=== PATIENT | male | born 1945 | race Caucasian/White ===

== ENCOUNTER 2021-12-11 17:38 | Emergency (ER) | payer MEDICARE, BC, SELFPAY ==
[2021-12-11 17:51] VITALS: BP 203/111; PULSE 87; RESP 18; TEMP 36.8; O2SAT 96; BMI 28.3
[2021-12-11 18:30] VITALS: BP 193/116
--- OUTSIDE RECORDS SUMMARY | 2021-12-11 18:34 | XMS_ITS | Clinical Summary ---
:1945 Author Organization [employer] [facility] [place] [address] Care Team Providers Name Role Phone Alonzo Gore MD Primary Care Provider Allergies Not on File Medications Medication Sig Dispensed Refills Start Date End Date Status aspirin chewable 81 mg Take 81 mg by 0 Active chewable tablet mouth once daily with a meal. clopidogreL (PLAVIX) 75 Take 75 mg by 0 Active mg tablet mouth once daily. rosuvastatin (CRESTOR) Take 20 mg by 0 Active 20 mg tablet mouth at bedtime. Active Problems Not on file Immunizations Name Administration Dates Next Due Amb Influenza, Inactivated AIIV4 (Age 65+ Years) 01/18/2020 Preserv Free Social History Tobacco Use Types Packs/Day Years Used Date Never Assessed Sex Assigned at Date Recorded Not on file Last Filed Vital Signs Vital Sign Reading Time Taken Comments Blood Pressure - - Pulse - - Temperature - - Respiratory Rate - - Oxygen Saturation - - Inhaled Oxygen Concentration - - Weight 91.5 kg (201 lb 11.2 oz) 08/25/2019 11:00 AM CDT Height 172.7 cm (5' 8) 08/25/2019 11:00 AM CDT Body Mass Index 30.67 08/25/2019 11:00 AM CDT Plan of Treatment Health Maintenance Due Date Last Done Comments COVID-19 vaccine series (#1) 1945 Tdap 1956 BMI (ht and wt on same day) for age 18+ 1965 Hepatitis C screening for age 18-79 1965 Tetanus booster 1967 Colonoscopy through age 75 1992 Lipids for age 45-75 1992 Zoster (shingles) series for age 50+ (1 of 1997 2) Pneumococcal series for age 65+ (1 - PCV) 2012 Depression screening for age 12+ 12/08/2020 12/09/2019, Influenza for age 65+ 12/07/2021 01/18/2020 Results Not on filefrom Last 3 Months Insurance Payer Benefit Plan / Subscriber ID Effective Dates Phone Addre ss Type Group MEDICARE PART B MEDICARE PART B [id number] 2012-Presen ATTN: CLAIMS - HB USE ONLY HB ONLY t [address] [place] [address] MEDICARE PART A MEDICARE RR [id number] 2012-Presen [address] - HB USE [place] [address] [place] BLUE [employer]OSS [id number] 2016-Presen [address] [address] [place], [place] [id number] [employer]OSS BL[employer]OSS [id number] 2016-Presen [address] [address] [place], [place] ONLY [id number] (Home) [place] [address] Care Teams Area Secretary Relationship Specialty Start Date End Date Alonzo Gore MD PCP - General Internal Medicine 10/06/161999 [place] [address]
[2021-12-11 19:00] VITALS: PULSE 84; O2SAT 94
--- NOTE | 2021-12-11 21:56 | ED.WOUNDLAC ---
HPI - Wound/Laceration General Chief Complaint: Laceration/Wound Stated Complaint: Vlad fell on Him Time Seen by Provider: 12/11/21 18:03 History of Present Illness HPI narrative: 76-year-old man presenting to the emergency department after tripping over an up turned wheelbarrow and somehow lacerating the left side of his face. His also struck his head. There was no loss of consciousness. He was assisting a neighbor with a trailer when he removed a Jaime and it began to slip and Mr. Santoro ran away tripping over the wheelbarrow. Dentition feels intact. Does not have any neck or back pain. No injury noted to chest. No nausea. No abdominal pain. his shirt has torn in the front. He does note a bump on the back of his head. He does not take anticoagulants. Related Data Home Medications Medication Instructions Recorded Confirmed aspirin 81 mg capsule 81 mg PO DAILY 12/11/21 12/11/21 losartan 25 mg tablet mg 12/11/21 rosuvastatin 20 mg tablet mg 12/11/21 Allergies Allergy/AdvReac Type Severity Reaction Status Date / Time lisinopril Allergy Intermediate Cough Verified 11/20/21 15:40 Review of Systems Status of ROS: Reports: 6 or more systems reviewed and unremarkable except as noted in History and below [facility] Medical History Hemorrhage of colon following colonoscopy (10/08/17) ST elevation myocardial infarction (STEMI) (08/04/19) Surgical History History of coronary artery stent placement (08/04/19) Social History Smoking Status: Former smoker Do you use any of these nicotine containing products: None Second hand tobacco smoke exposure: No How often do you have a drink containing alcohol: 4 or more times a week How many standard drinks containing alcohol do you have on a typical day: 1 or 2 How often do you have six or more drinks on one occasion: Never AUDIT-C Alcohol total score: 4 Non-prescribed substance use: denies use Exam Narrative: Exam Narrative: Is of good energy. Bespectacled. Moving all extremities without difficulty. No injury apparent on extremities other than anterior left mckeon with number of scrapes where bleeding has been controlled. Cranial nerves 2-12 intact. GCS 15. There is dried blood about his left face, shirt which is ripped with a vertically in the left front. There is a small lump without crepitus palpable at the right mid-occipital area. A scrape below that is not actively bleeding. In the smile line on the left there is a scrape starting just inferior to the left naris extending and deepening to about a cm above the vermilion border. Gapping slightly with the deepest portion about an inch in length. Or pharyngeal exam is unremarkable dentition intact. Is not a through and through laceration. Cardiovascular with regular rate and rhythm Back is nontender. Lungs equal expansion excursion appear to be clear. Abdomen is soft and nontender. Const: Vital Signs, click to edit/add: Vital Signs - 24 hr 12/11/21 17:51 12/11/21 19:00 12/11/21 18:30 Temperature 98.3 F Pulse Rate [Bilate ral Pulse Oximeter ] 87 84 Respiratory Rate 18 Blood Pressure [Ri ght Upper Arm] 203/111 H 193/116 H Pulse Oximetry 96 94 Oxygen Delivery Me thod Room Air Room Air Documenting provider has reviewed patient's vital signs: yes Course Course Hospital Course: Did not feel he needed any intervention for pain. He even was about to defer anesthetic. Cleansed with Hibiclens solution by nursing. Did bring the somewhat superficial aspect of this wound together on the superior part to decrease the likely scarring. Following injection with lidocaine with epinephrine, suturing this and remainder of laceration with 5 - Ethilon interrupted sutures. Excellent approximation and control bleeding was achieved. Five - 6 sutures placed. Vital Signs Vital signs: Initial Vital Signs Temperature 98.3 F 12/11/21 17:51 Temperature Source Temporal Artery Scan 12/11/21 17:51 Pulse Rate 87 12/11/21 17:51 Respiratory Rate 18 12/11/21 17:51 Blood Pressure 203/111 H 12/11/21 17:51 Blood Pressure Mean 141 12/11/21 17:51 Blood Pressure Position Sitting 12/11/21 17:51 Pulse Oximetry 96 12/11/21 17:51 Oxygen Delivery Method 12/11/21 17:51 Vital Signs Temperature 98.3 F 12/11/21 17:51 Pulse Rate 87 12/11/21 17:51 Respiratory Rate 18 12/11/21 17:51 Blood Pressure 203/111 H 12/11/21 17:51 Pulse Oximetry 96 12/11/21 17:51 Oxygen Delivery Method 12/11/21 17:51 Temperature 98.3 F 12/11/21 17:51 Pulse Rate 84 12/11/21 19:00 Respiratory Rate 18 12/11/21 17:51 Blood Pressure 193/116 H 12/11/21 18:30 Pulse Oximetry 94 12/11/21 19:00 Oxygen Delivery Method 12/11/21 19:00 MDM - Wound/Laceration MDM Narrative Medical decision making narrative: Blood pressure is rather elevated. Mr. Santoro does not appear to be concerned. Did follow up to confirm in phone call that he monitor this closely. He believes that this will settle down. Closed head injury appears to be more superficial. In shared decision making we decided not to proceed with head imaging. Medical Records Attestation: I reviewed the patient's medical records. Discharge Plan Discharge Clinical Impression: Closed head injury, Facial laceration, Abrasion, Elevated blood pressure reading with diagnosis of hypertension Patient Disposition: Home, Self-Care Condition: Improved Additional Instructions: I would ice that bump on your head a couple of times daily over the next few days. Return for severe headache, repeated vomiting, unusual somnolence. sutures out in 6 days. antibiotic ointment for 3-4 days and then to a dry dressing. ok to get wet but try not to soak while sutures are in. for further scar reduction/wound healing if desired -- after the scab falls off, can apply daily vitamin e oil, emu oil or something like maderma or silicone-containing ointments or bandaids daily. especially avoid sun exposure for the first 9 - 12 months. Watch for spreading redness after 2 days accompanied by heat, swelling, marked increase in pain, purulent drainage. Please follow up this blood pressure this next week. Prescriptions: No Action losartan 25 mg tablet Label Comments: TAKE 1 TABLET BY MOUTH DAILY rosuvastatin 20 mg tablet Label Comments: TAKE 1 TABLET BY MOUTH DAILY aspirin 81 mg capsule 81 mg PO DAILY Follow Up/Referrals: Alonzo Gore MD [Primary Care Provider] - Stand Alone [facility] Inst[facility]
== END 2021-12-11 19:02 | disposition home or self-care (01) ==
PROVIDERS: Emergency Provider Family Medicine; PCP Internal Medicine
DX: S01.81XA Laceration without foreign body of other part of head, initial encounter (principal); S09.8XXA Other specified injuries of head, initial encounter; W01.0XXA Fall on same level from slipping, tripping and stumbling without subsequent striking against object, initial encounter; Y93.89 Activity, other specified; Y92.9 Unspecified place or not applicable; I10 Essential (primary) hypertension
CPT/HCPCS: 12011; 99284

== ENCOUNTER 2023-01-14 07:50 | Outpatient (CLI) | payer MEDICARE, BC, SELFPAY | END 2023-01-14 07:51 | disposition home or self-care (01) | LOC: NFLDREF 01-15 22:55 | PROVIDERS: PCP Internal Medicine; Referring Provider Internal Medicine; Visit Provider Internal Medicine | DX: Z00.00 Encounter for general adult medical examination without abnormal findings (principal); D64.9 Anemia, unspecified; I10 Essential (primary) hypertension; I25.10 Atherosclerotic heart disease of native coronary artery without angina pectoris; Z13.6 Encounter for screening for cardiovascular disorders; Z12.5 Encounter for screening for malignant neoplasm of prostate | CPT/HCPCS: 80053; 80061; 84153 ==

== ENCOUNTER 2024-02-13 06:30 | Day surgery (SDC) | payer MEDICARE, BC, SELFPAY ==
[2024-02-13] VITALS (18 sets, daily range): BP systolic 105–175; BP diastolic 53–102; PULSE 47–79; RESP 10–20; TEMP 35.9–36.6; O2SAT 93–98; BMI 28.8
--- OUTSIDE RECORDS SUMMARY | 2024-02-13 06:33 | XMS_ITS | Clinical Summary ---
Author Organization [employer] [facility] Address [place], [place] [address] Care Team Providers Care Inside Sales Consultant Name Role Phone Alonzo Gore MD Primary Care Provider [phone] Medications Medication Sig Dispensed Refills Start Date End Date Status aspirin chewable 81 mg chewable tablet Take 81 mg by mouth once daily with a meal. Active clopidogreL (PLAVIX) 75 mg tablet Take 75 mg by mouth once daily. Active rosuvastatin (CRESTOR) 20 mg tablet Take 20 mg by mouth at bedtime. Active Immunizations Name Administration Dates Next Due Amb Influenza, Inactivated A IIV4 (Age 65+ Years) Preserv Free 01/18/2020 Social History Tobacco Use Types Packs/Day Years Used Date Smoking Tobacco: Never Assessed Sex and Gender Information Value Date Recorded Sex Assigned at Not on file Gender Identity Not on file Sexual Orientation Not on file Last Filed Vital Signs Vital Sign Reading Time Taken Comments Blood Pressure - - Pulse - - Temperature - - Respiratory Rate - - Oxygen Saturation - - Inhaled Oxygen Concentration - - Weight 91.5 kg (201 lb 11.2 oz) 020 11:00 AM CDT Height 172.7 cm (5' 8) 08/25/2019 11:0 0 AM CDT Body Mass Index 30.67 08/25/2019 11:00 AM CDT Plan of Treatment Health Maintenance Due Date Last Done Comments Tdap 1956 BMI (ht and wt on same day) for age 18+ 1965 Hepatitis C screening for age 18-79 1965 Tetanus booster 1967 Zoster (shingles) series for age 50+ (1 of 2) 1997 Pneumococcal series for age 65+ (1 of 1 - PCV) 2012 Depression screening for age 12+ 12/08/2020 12/09/19 20, 08/25/2019 RSV vaccine for adults or pr egnancy (1 - 1-dose 75+ series) 2022 COVID-19 vaccine series ( season) 2023 Influenza for age 65+ 12/08/2023 01/18/2020 Care Teams Inside Sales Consultant Relationship Specialty Start Date End Date Alonzo Gore MD [address] [place] [address] PCP - General Internal Medicine 10/06/16
[2024-02-13] MEDS: ACETAMINOPHEN 500 MG TABLET 1000 MG PO (07:10)
[2024-02-13] MEDS: CELECOXIB 200 MG CAPSULE PO (07:10)
[2024-02-13] MEDS: OXYCODONE (CR) 10 MG TAB.ER.12H PO (07:10)
[2024-02-13] MEDS: MIDAZOLAM HCL 1 MG/ML inj IVP (07:20)
[2024-02-13] MEDS: fentaNYL 100 MCG/2 ML inj IVP (07:20)
[2024-02-13] MEDS: LACTATED RINGERS 1000 ML 1,000 ML 100 ML IV (07:37)
--- NOTE | 2024-02-13 07:45 | CRLHL7_ITS ---
For Patients: As a result of the Century Cures Act, medical imaging exams and procedure reports are released immediately into your electronic medical record. You may view this report before your referring provider. If you have questions, please contact your health care provider. INDICATION: Follow-up right hip arthroplasty. TECHNIQUE: Two portable intraoperative images of the right hip. Fluoroscopic guidance utilized. FINDINGS: Intraoperative right hip arthroplasty. The components appear to be adequately aligned. 59.8 seconds fluoroscopy time utilized. IMPRESSION : 59.8 seconds fluoroscopy time utilized intraoperatively. Dictated by Raymon Martins MD @ 02/14/2024 10:04:34 AM (Electronically Signed)
--- NOTE | 2024-02-13 07:49 | SUR.PREOP ---
TIME?OUT:?719, right hip PT/RN/MDA?VERIFICATION?OF?SURGICAL?SITE,?PROCEDURE,?AND?CONSENT OBTAINED?PRIOR?TO?INVASIVE?PROCEDURE.
[2024-02-13] MEDS: TRANEXAMIC ACID 100 MG/ML INJ 1000 MG IV (07:55)
[2024-02-13] MEDS: CEFAZOLIN 2 GM INJ IVP (07:55)
--- NOTE | 2024-02-13 08:07 | W.PM.NB ---
Nerve Block Nerve Block Time Seen by Provider: 07:20 Date Seen: 02/13/24 Type of block requested by surgeon for post-operative analgesia: GEORGE/LFCN Side: right Time out performed: Yes Verification of patient name: Yes Verification of date of : Yes Site marking: site marked Name of person performing procedure: Thang Angeles Continuous monitoring Was continuous monitoring of O2 sat, B/P, phototypesetting equipment monitor, recorded every 15 minutes?: Yes Procedure Checklist: sterile prep, needles and gloves Ultrasound guided. Images saved: Yes Medications given in 5ml increments after negative aspiration: Ropivicaine %: 0.5 mL: 30 Needle gauge: 20 Precedex (mcg): 25 Patient tolerated procedure well: Yes Additional comments: Injected in 5 mL increments after negative aspiration Block Charges Block Charge (with Pro Fee): Femoral Nerve Use of Ultrasound Machine for Block: Yes- US Guidance/pain block
--- NOTE | 2024-02-13 08:13 | SUR.OPER ---
PATIENT QUESTIONS ANSWERED SATISFACTORILY PREOPERATIVELY. PATIENT BROUGHT TO OR #2 PER CART AFTER ADMINISTRATION OF A BLOCK. Patient positioned supine on OR #2 bed. The perioperative team supported arms bilaterally on arm boards. Final approval of positioning by surgeon.
[2024-02-13 09:00] LABS: Basophils Absolute Auto 0.06 K/uL (0.00-0.30); Basophils Percent Auto 0.9 % (0.0-3.0); Eosinophils Absolute Auto 0.34 K/uL (0.00-0.50); Eosinophils Percent Auto 4.9 % (0.0-7.0); Hematocrit 44.3 % (37.0-53.0); Hemoglobin* 14.3 gm/dL (13.5-17.5); Immature Granulocytes Abs Auto 0.01 K/uL (0.00-0.30); Immature Granulocytes Pct Auto 0.1 %; Mean Corpuscular HGB Conc 32 gm/dL (32-36); Mean Corpuscular Hemoglobin 27 pg (26-34); Mean Corpuscular Volume 84 fL (80-100); Monocytes Percent Auto 11.9 % (0.0-11.0); Neutrophils Absolute Auto 4.35 K/uL (1.7-7.0); Neutrophils Percent Auto 62.2 % (42.0-72.0); Platelet Count* 189 K/uL (140-440); RDW Coefficient of Variation % 15.7 % (11.5-15.5); Red Blood Count 5.27 m/uL (4.30-5.90); White Blood Count* 6.99 K/uL (4.50-11.00)
[2024-02-13 09:01] LABS: Slide Review Reflex No
--- NOTE | 2024-02-13 09:01 | CRLHL7_ITS ---
For Patients: As a result of the Cures Act, medical imaging exams and procedure reports are released immediately into your electronic medical record. You may view this report before your referring provider. If you have questions, please contact your health care provider. INDICATION: Right hip arthroplasty. Follow-up. TECHNIQUE: AP portable postoperative view of the pelvis and cross-table lateral view of the right hip. COMPARISON: Pre-surgical images December 31, 2023. FINDINGS: There is a new right hip arthroplasty. The components are adequately aligned and well seated. Air within the joint space and soft tissue swelling of the surgery. IMPRESSION: New right hip arthroplasty. The components are adequately aligned and well seated. Dictated by Raymon Martins MD @ 02/14/2024 10:03:09 AM (Electronically Signed)
[2024-02-13 09:02] LABS: Chloride* 102 mmol/L (96-114); Potassium* 4.6 mmol/L (3.6-5.1); Sodium* 137 mmol/L (135-149)
--- NOTE | 2024-02-13 09:03 | PM.ORPRC ---
Procedure Note Date of procedure: 02/13/24 Procedure: PREOPERATIVE DIAGNOSIS: Right hip osteoarthritis POSTOPERATIVE DIAGNOSIS: Right hip osteoarthritis NAME OF OPERATION: Right total hip arthroplasty SURGEON: James Thorne MD CAMOUFLAGE ASSEMBLER: Bridget Stephens PA-C, BEBETO Walsh IMPLANTS: 1. [employer] [place] # 54 sector ingrowth cup 2. 36 x 54 +4 neutral polyethylene 3. Actis # 6 standard collared ingrowth stem 4. 36 + 1.5 cobalt chrome femoral head ANESTHESIA: Spinal ESTIMATED BLOOD LOSS: 180 cc COMPLICATIONS: None SPECIMENS: None DRAINS: None PREOPERATIVE ANTIBIOTICS: Ancef 2 grams INDICATIONS: The patient is a 78-year-old with a longstanding history of severe, unrelenting right hip pain secondary to end-stage right hip osteoarthritis. Despite appropriate nonoperative management, including activity modification, use of an assist device, anti-inflammatories, [id number] pain medication, physical therapy and injections, they continue to have pain and disability. Operative intervention was offered. The risks, benefits and expected outcomes were discussed in detail. These included but were not limited to: Infection, bleeding, injury to blood vessel or nerve, venous thromboembolism. All questions were answered to their satisfaction. Use of an speech language assistant was necessary throughout the case for patient positioning and safety, soft tissue retraction and closure. PROCEDURE: The patient was placed supine on the [place] table. General anesthesia was administered. The speech language assistant made sure the patient was properly positioned. The right hip was prepped and draped in the usual sterile fashion. The image intensifier was brought in for a perfect AP pelvis and a perfect double tear drop AP view of each hip which were used for intraoperative templating with our fluoroscopic guide. An oblique incision was made 3 cm distal and 3 cm lateral to the anterior superior iliac spine. The speech language assistant retracted the soft tissues to protect them. Subcutaneous dissection was taken with electrocautery to the superficial fascia. The fascia was divided in line with the incision. Blunt dissection was carried medially to the tensor fascia diamond and sartorius interval. Deep dissection was carried with electrocautery. The circumflex vessels were cauterized and divided. The capsule was exposed and then divided in a T-fashion, tagged with #1 Ethibond sutures. Retractors were placed in the joint, held by the speech language assistant. The corkscrew was placed in the femoral head. The neck cut was made in the subcapital region. We made a second neck cut more distal. The napkin ring of bone was removed. The femoral head was removed intact. Acetabular retractors were placed, held by the speech language assistant. The labrum was sharply debrided. The capsule was released. The 43 mm reamer was used to the true medial wall. We then enlarged in 2 mm increments using the image intensifier for our reamer placement. We impacted the cup which had excellent purchase. We placed the polyethylene. Attention was then turned to the proximal femur. The limb was placed in 140 degrees of external rotation, maximum extension and adduction. A significant amount of time was spent releasing the capsule to allow us to deliver the femur into the wound and complete the femoral side safely. Retractors were held by the speech language assistant throughout the femoral preparation. The punch box tender and canal finder were used. Broaches were used to a stable size. The calcar reamer was used. Trial components were placed. The hip was reduced and was found to be stable with appropriate soft tissue tension. Length and offset had been nicely restored using the image intensifier and our fluoroscopic guide. Trial components were removed. The stem was impacted. We placed the femoral head. Again, the hip was reduced and was found to be stable with appropriate soft tissue tension. Length and offset had been nicely restored. The speech language assistant did a three minute dilute Betadine solution soak. The speech language assistant irrigated the wound with 3 liters of normal saline via pulse lavage. The speech language assistant repaired the anterior capsule with a #1 Vicryl and our previously placed Ethibond sutures. The speech language assistant closed the fascia over the tensor fascia diamond with a #1 PDO Stratafix, subcutaneous tissues with 2-0 Vicryl, skin with a running 3-0 Stratafix and glue. A dry dressing was applied by the speech language assistant. Sponge and needle counts were correct x 2. The patient tolerated the procedure well; there were no apparent complications. They were awakened and extubated in the operating room, sent to the Post-Anesthesia Care Unit in satisfactory condition. PLAN: 1. The patient will be mobilized with physical therapy, weight-bearing as tolerates 2. Xarelto x 5 days then aspirin x 30 days will be used for DVT prophylaxis 3. The patient will be discharged once medically appropriate
[2024-02-13 09:04] LABS: Creatinine* 1.2 mg/dL (0.5-1.5); Est. Creatinine Clearance* 50.67; Estimated Glomerular Filt Rate 63 ml/min
[2024-02-13 09:05] LABS: Anion Gap 5 mEq/L (7-15); Blood Urea Nitrogen* 23 mg/dL (7-30); Calcium* 9.2 mg/dL (8.4-10.6); Carbon Dioxide* 30 mmol/L (20-32); Glucose* 114 mg/dL (60-115)
--- NOTE | 2024-02-13 10:20 | W.ANESCHARGE ---
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
== END 2024-02-13 14:26 | disposition home or self-care (01) ==
PROVIDERS: Nurse Anesthetist, Certified Registered; PCP Internal Medicine; Visit Provider Orthopaedic Surgery
PROC: (CPT 27130; principal; 2024-02-13 07:45)
DX: M16.11 Unilateral primary osteoarthritis, right hip (principal); G89.18 Other acute postprocedural pain; I10 Essential (primary) hypertension; I25.10 Atherosclerotic heart disease of native coronary artery without angina pectoris; D64.9 Anemia, unspecified
CPT/HCPCS: 27130; 01214; 36415; 64447; 73501; 76000; 76942; 80048; 85025; 86850; 86900; 86901; 97110; 97116; 97161; 97165; 99100; A9270; C1776; J0330; J0690; J1171; J2250; J2405; J2704; J2795; J3010; J3490; J7120

== ENCOUNTER 2024-03-19 09:00 | Outpatient (RCR) | payer MEDICARE, BC, SELFPAY | END 2024-06-05 08:12 | disposition home or self-care (01) | PROVIDERS: PCP Internal Medicine; Visit Provider Orthopaedic Surgery | DX: M16.11 Unilateral primary osteoarthritis, right hip (principal); Z96.641 Presence of right artificial hip joint; M25.551 Pain in right hip; M25.651 Stiffness of right hip, not elsewhere classified; Z51.89 Encounter for other specified aftercare | CPT/HCPCS: 97110; 97112; 97116; 97161; 97164 ==

== ENCOUNTER 2024-07-17 09:10 | Outpatient (CLI) | payer MEDICARE, BC, SELFPAY | END 2024-07-17 09:11 | disposition home or self-care (01) | LOC: NFLDREF 07-21 01:11 | PROVIDERS: PCP Internal Medicine; Referring Provider Internal Medicine; Visit Provider Internal Medicine | DX: Z12.5 Encounter for screening for malignant neoplasm of prostate (principal); I10 Essential (primary) hypertension; E78.5 Hyperlipidemia, unspecified | CPT/HCPCS: 80053; 80061; G0103 ==

== ENCOUNTER 2024-08-19 09:52 | Emergency (ER) | payer MEDICARE, BC, SELFPAY ==
--- OUTSIDE RECORDS SUMMARY | 2024-08-19 09:54 | XMS_ITS | Clinical Summary ---
Author Organization [facility] Address [address] [place] [id number] Care Team Providers Care Spa Manager/Esthetician Name Role Phone Alonzo Gore MD Primary Care Provider Allergies No known active allergies Medications aspirin chewable 81 mg chewable tablet Take 81 mg by mouth once daily with a meal. Active clopidogreL (PLAVIX) 75 mg tablet Take 75 mg by mouth once daily. Active rosuvastatin (CRESTOR) 20 mg tablet Take 20 mg by mouth at bedtime. Active losartan 25 mg tablet TAKE 1 TABLET(25 MG) BY MOUTH DAILY 08/01/2020 Active Encounters Date Type Department Care Team Description 08/11/2024 10:00 AM CDT Office Visit [facility] [id number] [place] [id number] Martnie Luther, DO Derm Problem 08/11/2024 Travel from Last 3 Months Immunizations Immunization Administration Dates Next Due Amb Influenza, Inactivated A IIV4 (Age 65+ Years) Preserv Free 01/18/2020 Social History Tobacco Use Types Packs/Day Years Used Date Smoking Tobacco: Never Assessed Smokeless Tobacco: Former Tobacco Cessation:Counseling Given: Not Answered Sex and Gender Information Value Date Recorded Sex Assigned at Not on file Legal Sex Male 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 Gender Identity Not on file Sexual Orientation Not on file Obstetrics History Last Filed Vital Signs Vital Sign Reading [...] Due Date Last Done Comments Tdap 1956 Depression screening for age 12+ 1959 BMI (ht and wt on same day) for age 18+ 1965 Hepatitis C screening for ag e 18-79 1965 Tetanus booster 1967 Pneumococcal series for age 50+ (1 of 1 - PCV) 1997 Zoster (shingles) series for age 50+ (1 of 2) 1997 Medicare Wellness for age 65+ 2012 RSV vaccine for adults or (1 - 1-dose 75+ series) 2022 Influenza Vaccine (Season Ended) 2024 01/18/20 COVID-19 vaccine series Completed 06/19/19, 12/12/2023, 01/07/2023, Additional history exists Insurance [employer] [place] ONLY MEDICARE PART B HB ONLY [employer] [place] [place] PB ONLY MEDICARE RR PART A HB ONLY Care Teams Spa Manager/Esthetician Relationship Specialty Start Date End Date Alonzo Gore MD [address] [place] [address] PCP - General Internal Medicine 10/06/16
[2024-08-19 10:03] VITALS: BP 157/89; PULSE 73; RESP 12; TEMP 36.7; O2SAT 95; BMI 28.1
--- NOTE | 2024-08-19 11:05 | CRLHL7_ITS ---
For Patients: As a result of the Cures Act, medical imaging exams and procedure reports are released immediately into your electronic medical record. You may view this report before your referring provider. If you have questions, please contact your health care provider. Indication: Injury Technique: An AP view of the pelvis was acquired as well as AP and frogleg lateral views of the right hip Comparison: July 13, 2024 Findings: Degenerative changes of the visualized lower lumbar spine. Right hip arthroplasty. No abnormal lucency about the implants. No acute fracture, dislocation or destructive process. Impression: Right hip arthroplasty. No visible acute posttraumatic findings Dictated by Lokesh Balbuena MD @ 08/19/2024 11:27:30 AM (Electronically Signed)
--- NOTE | 2024-08-19 11:06 | ED.BACK ---
HPI - Back Pain/Injury General Chief Complaint: Back Injury/Pain Stated Complaint: fell down on concreate stairs, back pain Time Seen by Provider: 08/19/24 11:00 History of Present Illness HPI Narrative: This 79-year-old male comes in for evaluation of an injury that occurred just prior to arrival. He had his dog on a leash and the dog pulled him down a step where he fell onto the right side of his lower back. He did not hit his head or have loss of consciousness. He reports some pain in the lateral aspect of his right lower back. He was able to get up and ambulate without difficulty. He states that he had his right hip replaced about 8 months ago and has been doing well. He also has a small abrasion on his right elbow. Related Data Home Medications ?Medication ?Instructions ?Recorded ?Confirmed aspirin 81 mg capsule 81 mg PO DAILY 12/11/21 08/19/24 Previous Rx's ?Medication ?Instructions ?Recorded losartan 50 mg tablet 50 mg PO QDAY Hypertension #90 tabs 07/21/24 rosuvastatin 20 mg tablet 20 mg PO QDAY #90 tabs 07/21/24 cyclobenzaprine 10 mg tablet 10 mg PO TID #15 tabs 08/19/24 ketorolac 10 mg tablet 10 mg PO TID 5 days #15 tabs 08/19/24 Allergies Allergy/AdvReac Type Severity Reaction Status Date / Time lisinopril Allergy Intermediate Cough Verified 08/19/24 10:03 Review of Systems Status of ROS: Reports: 10 or more systems reviewed and unremarkable except as noted in History and below Narrative: Constitutional: No fevers, no weight gain or loss. Eyes: No discharge. No vision changes. HENT: No congestion, no sore throat, no ear pain. Cardiovascular: No chest pain, no palpitations. Respiratory: No shortness of breath, no wheezes, no cough. Gastrointestinal: No abdominal pain, no vomiting, no diarrhea. Genitourinary: No dysuria, no hematuria. Musculoskeletal: Normal range of motion. Skin: No rashes, no pruritis. Neurological: No dizziness, weakness, sensory change, speech change. Endo/Heme/Allergies: No bruising or bleeding. No polydipsia. Pysch: no suicidality, no anxiety, no insomnia. All other systems reviewed and are negative. 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) ?Z96.641 - Presence of right artificial hip joint (ICD-10) History of coronary artery stent placement (08/04/19) ?Z95.5 - Presence of coronary angioplasty implant and graft (ICD-10) Social History (Updated 07/21/24 @ 13:05 by Milla Haines ~ [facility]) What is your current living situation?: I presently have a place to live Problems where you live: no known problems In the past 12 months, utilities in danger of being shut off: no In past 12 months, lack of transportation kept you from medical appts, meetings, work, or getting things needed for daily living: no In the past 12 mos, have been you worried that your food would run out before you had money to buy more?: never true In the past 12 mos, the food you bought just didn't last and you didn't have money to buy more?: never true Smoking Status: Former smoker Do you use any of these nicotine containing products: None Second hand tobacco smoke exposure: No How often do you have a drink containing alcohol: 4 or more times a week How many standard drinks containing alcohol do you have on a typical day: 1 or 2 How often do you have six or more drinks on one occasion: Never AUDIT-C Alcohol total score: 4 Non-prescribed substance use: former substance user How often does anyone, including family, friends and others, physically hurt you: never How often does anyone, including family, friends and others, insult or talk down to you: never How often does anyone, including family, friends and others, threaten you with harm: never How often does anyone, including family, friends and others, scream or curse at you: never Exam Narrative: Exam Narrative: Constitutional: Well-developed, well-nourished, no acute distress. HEENT: Normocephalic, atraumatic. Neck: Normal range of motion. Nontender. Supple. Heart: Regular. No murmurs. Normal rate. Intact distal pulses. Lungs: Clear to auscultation. No chest discomfort. No wheezes, rhonchi, or rales. Abdomen: Normal bowel sounds. Nontender. No rebound tenderness. Genitalia: Deferred. Back: No midline tenderness. Normal range of motion. Diffuse pain in the right lateral lower back. No point tenderness when pressing along his spine. Extremities: Normal range of motion. No injury. Skin: Intact. No rash. Warm. No erythema or pallor. Neurologic: No altered sensation. No weakness. Alert and oriented. Psychiatric: No suicidality. No anxiety or depression. No insomnia. Nursing notes and vitals signs are reviewed. Const: Vital Signs, click to edit/add: Vital Signs - 24 hr 08/19/24 10:03 Temperature 98.0 F Pulse Rate [Pulse Oximeter] 73 Respiratory Rate 12 Blood Pressure [Ri ght Upper Arm] 157/89 H Pulse Oximetry 95 Oxygen Delivery Me thod Room Air Course Vital Signs Vital signs: Initial Vital Signs Temperature 98.0 F 08/19/24 10:03 Temperature Source Temporal Artery Scan 08/19/24 10:03 Pulse Rate 73 08/19/24 10:03 Pulse Rhythm Regular 08/19/24 10:03 Respiratory Rate 12 08/19/24 10:03 Blood Pressure 157/89 H 08/19/24 10:03 Blood Pressure Mean 111 H 08/19/24 10:03 Blood Pressure Position Supine 08/19/24 10:03 Pulse Oximetry 95 08/19/24 10:03 Oxygen Delivery Method Room Air 08/19/24 10:03 Vital Signs Temperature 98.0 F 08/19/24 10:03 Pulse Rate 73 08/19/24 10:03 Respiratory Rate 12 08/19/24 10:03 Blood Pressure 157/89 H 08/19/24 10:03 Pulse Oximetry 95 08/19/24 10:03 Oxygen Delivery Method Room Air 08/19/24 10:03 Temperature 98.0 F 08/19/24 10:03 Pulse Rate 73 08/19/24 10:03 Respiratory Rate 12 08/19/24 10:03 Blood Pressure 157/89 H 08/19/24 10:03 Pulse Oximetry 95 08/19/24 10:03 Oxygen Delivery Method Room Air 08/19/24 10:03 MDM - Back Pain/Injury MDM Narrative Medical decision making narrative: This patient comes in for evaluation of injuries from a fall as described above. I did obtain x-ray of his hip and pelvis and see no sign of abnormality there. Radiology report also confirms this. The patient is able to get up and ambulate and shows no sign of deformity or disability. He is okay to be discharged home. I did provide prescription for Toradol and Flexeril for symptomatic relief if needed. Discharge Plan Discharge Clinical Impression: Contusion of hip, right Patient Disposition: Home, Self-Care Condition: Stable Additional Instructions: Take medication as needed and directed. Activity as tolerated. Follow up with MD return if worsening. Prescriptions: New cyclobenzaprine 10 mg tablet 10 mg PO TID Qty: 15 0RF ketorolac 10 mg tablet 10 mg PO TID 5 Days Qty: 15 0RF No Action losartan 50 mg tablet 50 mg PO QDAY Qty: 90 3RF rosuvastatin 20 mg tablet 20 mg PO QDAY Qty: 90 3RF aspirin 81 mg capsule 81 mg PO DAILY Follow Up/Referrals: Alonzo Gore MD [Primary Care Provider] - Stand Alone Forms: Virtual View App Info Instructions
--- OUTSIDE RECORDS SUMMARY | 2024-08-19 11:18 | XMS_ITS | Clinical Summary ---
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
== END 2024-08-19 11:57 | disposition home or self-care (01) ==
PROVIDERS: Emergency Provider Emergency Medicine Emergency Medical Services; PCP Internal Medicine
DX: S70.01XA Contusion of right hip, initial encounter (principal); W10.9XXA Fall (on) (from) unspecified stairs and steps, initial encounter; Y93.K1 Activity, walking an animal
CPT/HCPCS: 73502; 99283; 99284